=== PATIENT | female | born 1930 | race Caucasian/White ===

== ENCOUNTER 2016-03-14 11:06 | Inpatient (IN) ==
[2016-03-14] MEDS ORDERED: ASPIRIN 325 MG TABLET PO STA (11:24)
[2016-03-14] MEDS ORDERED: NITROGLYCERIN 2% OINT 1 INCH/GM PACK TOP STA (11:24)
--- NOTE | 2016-03-14 11:28 | EKG Report ---
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
[2016-03-14] MEDS ORDERED: NITROGLYCERIN 2% OINT 1 INCH/GM PACK TOP ONE (11:40)
[2016-03-14 11:52] LABS: Basophils # 0.1 10*3/uL (0.0-0.2); Basophils % 0.4 % (0.0-0.8); Eosinophils # 0.2 10*3/uL (0.0-0.87); Eosinophils % 1.2 % (0.00-10.9); Hematocrit 41.4 VOL% (35.7-47.0); Hemoglobin 13.6 GM/DL (12.0-16.0); Immature Granulocytes % 0.6 %; Immature Granulocytes Absolute 0.07 #; Lymphocytes # 1.4 10*3/uL (1.4-4.0); Lymphocytes % 10.9 % (21.3-54.2); Mean Corpuscular HGB Conc 32.9 GM/DL (32-36); Mean Corpuscular Hemoglobin 30 PG (27-34); Mean Corpuscular Volume 90.2 FL (87-102); Mean Platelet Volume 10.7 FL (9.6-12.0); Monocytes % 7.9 % (1.7-12.7); Neutrophils # 9.7 10*3/uL (1.4-7.4); Platelet Count 285 T/CUMM (130-400); Red Blood Count 4.59 MC/CUMM (3.8-5.5); Red Cell Distribution Width 13.5 % (9.3-17.3); White Blood Count 12.3 T/CUMM (4-12)
--- NOTE | 2016-03-14 11:57 | XRay Report ---
Portable chest Date:[03/14/2016] Clinical history: Chest pain Comparison: 03/11/2016 Technique: Portable AP sitting chest Findings: The heart remains normal in size uncoiling aorta. Expiratory chest with stable appearance of the lungs, mediastinum, and osseous structures. Impression: Expiratory chest with no significant change in the appearance of the chest when compared to the previous exam. PROCEDURE INTERPRETED AT [facility] DEPARTMENT OF RADIOLOGY Final Report Signed by: Dr. Karma Salas
--- NOTE | 2016-03-14 12:20 | Emergency Department Note ---
Lio De La Paz Brooke, am scribing for, and in the presence of, Adria Waldron MD 11:26. Chivo De [place] Paz Robert M, MD, personally performed the services described in this documentation, ascribed by Magui Vaca in my presence, and it is both accurate and complete . Arrival - Arrival Chief Complaint: Chest Pain Stated Complaint: chest pain ED Nursing Triage Note: midsternal chest pain started after eating breakfast no shortness of breath nitro SL and ASA 324 given enroute pain is a 4 after nitro fsg 106 pt is a poor historian Mode of Arrival: Stretcher Limitations: No Limitations Source: Patient, RN Notes Reviewed Time Seen by Provider: 03/14/16 11:22 - History of Present Illness HPI Narrative: Patient is a 85 year old female who presents to the ED with c/o chest pain that stared about three or four days ago. Patient says nothing makes the pain worse. She denies being nauseated or having SOB. Patient says she does not have any heart trouble that she knows of. Patient has PMHx of Alzheimer's disease, HTN, CVA, and dyslipidemia. Onset (ago): day(s) (3 or 4 days) Allergies/Adverse Reactions: Allergies Allergy/AdvReac Type Severity Reaction Status Date / Time clindamycin Allergy Verified 03/11/16 19:03 Erythromycin Base Allergy Verified 03/11/16 19:03 morphine Allergy Unknown/Unable Verified 06/20/14 19:27 to obtain azithromycin [From Zithromax] AdvReac Unknown/Unable Verified 06/20/14 19:27 to obtain Home Medications: Home Medications Medication Instructions Recorded Confirmed Type ALPRAZolam [Xanax] 0.25 mg PO BEDTIME 08/24/15 03/14/16 History Cholecalciferol (Vitamin D3) 5,000 unit PO DAILY 08/24/15 03/14/16 History [Vitamin D3] Flecainide Acetate 100 mg PO Q12H 08/24/15 03/14/16 History Levothyroxine Tab [Synthroid Tab] 75 mcg PO QAM 08/24/15 03/14/16 History Losartan Potassium [Cozaar] 100 mg PO DAILY 08/24/15 03/14/16 History NIFEdipine XL TAB [Procardia Xl] 60 mg PO BEDTIME 08/24/15 03/14/16 History Quetiapine Fumarate [Seroquel] 50 mg PO BEDTIME 08/24/15 03/14/16 History Acetaminophen Tab [Tylenol Tab] 500 mg PO Q6H PRN 03/11/16 03/14/16 History Oxybutynin Chloride [Oxybutynin 5 mg PO DAILY 03/11/16 03/14/16 History Chloride ER] Polyvinyl Alcohol 1.4% Oph Luz Marina 1 drop BOTH EYES Q2H PRN 03/11/16 03/14/16 History [Artificial Tears Oph Soln] Rivastigmine 4.6 mg/24Hr Patch 1 patch TRANSDERM DAILY 03/11/16 03/14/16 History [Exelon 4.6 mg/24 hr Patch] Aspirin EC Tab 81 mg PO DAILY 03/14/16 03/14/16 History Vilazodone Hydrochloride [Viibryd] 40 mg PO DAILY 03/14/16 03/14/16 History Review of System - Review of System 12 point system: reviewed and no additional remarkable complaints except as stated - Review of System Constitutional: Absent: fever Respiratory: Absent: respiratory distress Cardiovascular: Present: chest pain Gastrointestinal: Absent: nausea Skin: Absent: rash Medical,Surgical,& Family Hx - Medical History Cardio: History of: Hypertension Neurology: History of: Cerebrovascular Accident, Dementia Endocrine: History of: Dyslipidemia - Surgical History Cardiac Surgeries: Sugical HX of: Cardiac Catheterization Reproductive Surgeries: Patient denies;: Gynecologic Surgery - Social History Smoking Status: Never smoker Exam Vital Signs: Vital Signs Temperature 97.3 F L 03/14/16 11:07 Pulse Rate 76 03/14/16 11:07 Respiratory Rate 14 03/14/16 11:49 Blood Pressure 174/96 03/14/16 11:07 O2 Sat by Pulse Oximetry 97 03/14/16 11:07 - General General appearance: alert, in no apparent distress - Head Head exam: Present: atraumatic, normocephalic - Eye Eye exam: Present: normal appearance, PERRL, EOMI - ENT ENT exam: Present: other (Hard of hearing) - Neck Neck exam: Present: normal inspection - Chest Chest inspection: Present: normal inspection, symmetric chest wall rise - Respiratory Respiratory exam: Present: normal lung sounds bilaterally - Cardiovascular Cardiovascular exam: Present: regular rate, normal rhythm, normal heart sounds - Abdominal Exam Abdominal exam: Present: soft. Absent: distention, tenderness - Extremities Exam Extremities exam: Present: normal inspection - Back Exam Back exam: Present: normal inspection - Neurological Exam Neurological exam: Present: alert, oriented X3 - Psychiatric Psychiatric exam: Present: normal affect, normal mood - Skin Skin exam: Present: warm, dry, intact, normal color Course - Consultations Consultation #1: Dr. Christine Griffin was consulted and requests the patient be admitted to the hospitalists. Time: 14:54 Consultation #2: The hospitalist will evaluate and admit the patient. Time: 14:55 Results - Labs CBC & BMP: 03/14/16 11:38 03/14/16 11:38 Lab Results: I have reviewed the patients labs Labs: Lab Results WBC 12.3 T/CUMM (4-12) H 03/14/16 11:38 RBC 4.59 MC/CUMM (3.8-5.5) 03/14/16 11:38 Hgb 13.6 GM/DL (12.0-16.0) 03/14/16 11:38 Hct 41.4 VOL% (35.7-47.0) 03/14/16 11:38 MCV 90.2 FL (87-102) 03/14/16 11:38 MCH 30 PG (27-34) 03/14/16 11:38 MCHC 32.9 GM/DL (32-36) 03/14/16 11:38 RDW 13.5 % (9.3-17.3) 03/14/16 11:38 Plt Count 285 T/CUMM (130-400) D 03/14/16 11:38 MPV 10.7 FL (9.6-12.0) 03/14/16 11:38 Neut % (Auto) 79.0 % (38.7-73.9) H 03/14/16 11:38 Lymph % (Auto) 10.9 % (21.3-54.2) L 03/14/16 11:38 [place] % (Auto) 7.9 % (1.7-12.7) 03/14/16 11:38 Eos % (Auto) 1.2 % (0.00-10.9) 03/14/16 11:38 Baso % (Auto) 0.4 % (0.0-0.8) 03/14/16 11:38 Neut # (Auto) 9.7 10*3/uL (1.4-7.4) H 03/14/16 11:38 Lymph # (Auto) 1.4 10*3/uL (1.4-4.0) 03/14/16 11:38 [place] # (Auto) 1.0 10*3/uL (0.11-0.8) H 03/14/16 11:38 Eos # (Auto) 0.2 10*3/uL (0.0-0.87) 03/14/16 11:38 Baso # (Auto) 0.1 10*3/uL (0.0-0.2) 03/14/16 11:38 Immature Gran % 0.6 % 03/14/16 11:38 Nucleated RBC % 0.0 /100WBC 03/14/16 11:38 Immature Gran # 0.07 # 03/14/16 11:38 Nucleated RBCs # 0.00 10*3/uL 03/14/16 11:38 INR 1.0 03/14/16 11:38 PT Patient/Control Mix 11.0 SECS 03/14/16 11:38 Sodium 140 MMOL/L (136-145) 03/14/16 11:38 Potassium 3.9 MMOL/L (3.5-5.1) 03/14/16 11:38 Chloride 102 MMOL/L (98-107) 03/14/16 11:38 Carbon Dioxide 26 MMOL/L (21-32) 03/14/16 11:38 Anion Gap 15.9 MMOL/L (5.0-15.0) H 03/14/16 11:38 BUN 42 MG/DL (7-18) H 03/14/16 11:38 Creatinine 1.60 MG/DL (0.55-1.02) H 03/14/16 11:38 GFR Calculation 28 ML/MIN 03/14/16 11:38 BUN/Creatinine Ratio 26.00 RATIO (6.00-20.00) H 03/14/16 11:38 Glucose 86 MG/DL (74-106) 03/14/16 11:38 Calculated Osmolality 288.4 MOS/KG (273-304) 03/14/16 11:38 Calcium 8.8 MG/DL (8.5-10.1) 03/14/16 11:38 Magnesium 2.2 MG/DL (1.8-2.4) 03/14/16 11:38 Total Bilirubin 1.00 MG/DL (0.2-1.0) 03/14/16 11:38 AST 49 U/L (0-37) H 03/14/16 11:38 ALT 35 U/L (13-56) 03/14/16 11:38 Alkaline Phosphatase 113 U/L (45-117) 03/14/16 11:38 Troponin I 0.048 NG/ML (0.00-0.045) H D 03/14/16 11:38 B-Natriuretic Peptide 389 PG/ML (2-100) H 03/14/16 11:38 Total Protein 7.1 G/DL (6.4-8.3) 03/14/16 11:38 Albumin 3.0 G/DL (3.4-5.0) L 03/14/16 11:38 Globulin 4.1 G/DL (2.3-3.5) H 03/14/16 11:38 Albumin/Globulin Ratio 0.7 RATIO (1.1-2.2) L 03/14/16 11:38 Laboratory Tests 03/14/16 13:30 Total Creatine Kinase 446 H D CK-MB (CK-2) 4.9 H D Troponin I 0.045 - EKG EKG results: interpreted by SAMEERA, WNL, sinus rhythm - Diagnostic Findings Procedure: Chest x-ray: report reviewed by me Disposition Clinical Impression: Chest pain, Advanced dementia Case discussed with: patient Disposition: Still a Patient Condition: Stable Time of Disposition: 14:55
[2016-03-14 12:27] LABS: Calcium 8.8 MG/DL (8.5-10.1); Magnesium 2.2 MG/DL (1.8-2.4); Osmolality,Calculated 288.4 MOS/KG (273-304); Potassium 3.9 MMOL/L (3.5-5.1); Total Protein 7.1 G/DL (6.4-8.3)
[2016-03-14 14:17] LABS: Troponin I Only 0.045 NG/ML (0.00-0.045)
--- NOTE | 2016-03-14 16:11 | Hospitalist History & Physical ---
Assessment and Plan - Time spent with patient Time spent with patient: Greater than 30 minutes (1) Chest pain Status: Acute Assessment and plan: Improved. Will trend cardiac enzymes, telemetry, echo is not present on, aspirin given Current Visit: Yes Qualifiers: Chest pain type: unspecified Qualified Code(s): R07.9 - Chest pain, unspecified (2) Acute kidney injury Problem details: Diagnosed few days ago creatinine was 2.7. Today it's 1.6 similar to yesterday. Status: Acute Assessment and plan: I/O, if not done will do FeNa, FeUrea, renal US Current Visit: No (3) Recent urinary tract infection Problem details: Escherichia coli revealed an urine culture Status: Acute Assessment and plan: Antibiotic Current Visit: No (4) Advanced dementia Status: Chronic Current Visit: Yes (5) Debility, unspecified Status: Acute Current Visit: Yes History of Present Illness Chief complaint: chest pain History of present illness: Ms. Lopez is a 85 year old female who was just discharged yesterday reportedly presented today to the ER from the assisted for chest pain. Patient is a poor historian with advanced dementia. Periportal chest pain was improved with nitroglycerin and patient was given aspirin. EKG done and they are showed no evidence of ACS but did show prolonged OH of 236 ms. Patient stated no to having chest pain at the time of the exam and she stated no to having nausea or vomiting. ROS was very limited because of the patient's advanced dementia. Report patient was recently treated for UTI and acute kidney injury and was just discharged yesterday. Home Medications Medication Instructions Recorded Confirmed Type ALPRAZolam [Xanax] 0.25 mg PO BEDTIME 08/24/15 03/14/16 History Cholecalciferol (Vitamin D3) 5,000 unit PO DAILY 08/24/15 03/14/16 History [Vitamin D3] Flecainide Acetate 100 mg PO Q12H 08/24/15 03/14/16 History Levothyroxine Tab [Synthroid Tab] 75 mcg PO QAM 08/24/15 03/14/16 History Losartan Potassium [Cozaar] 100 mg PO DAILY 08/24/15 03/14/16 History NIFEdipine XL TAB [Procardia Xl] 60 mg PO BEDTIME 08/24/15 03/14/16 History Quetiapine Fumarate [Seroquel] 50 mg PO BEDTIME 08/24/15 03/14/16 History Acetaminophen Tab [Tylenol Tab] 500 mg PO Q6H PRN 03/11/16 03/14/16 History Oxybutynin Chloride [Oxybutynin 5 mg PO DAILY 03/11/16 03/14/16 History Chloride ER] Polyvinyl Alcohol 1.4% Oph Luz Marina 1 drop BOTH EYES Q2H PRN 03/11/16 03/14/16 History [Artificial Tears Oph Soln] Rivastigmine 4.6 mg/24Hr Patch 1 patch TRANSDERM DAILY 03/11/16 03/14/16 History [Exelon 4.6 mg/24 hr Patch] Aspirin EC Tab 81 mg PO DAILY 03/14/16 03/14/16 History Vilazodone Hydrochloride [Viibryd] 40 mg PO DAILY 03/14/16 03/14/16 History Allergies Allergy/AdvReac Type Severity Reaction Status Date / Time clindamycin Allergy Verified 03/11/16 19:03 Erythromycin Base Allergy Verified 03/11/16 19:03 morphine Allergy Unknown/Unable Verified 06/20/14 19:27 to obtain azithromycin [From Zithromax] AdvReac Unknown/Unable Verified 06/20/14 19:27 to obtain Medical,Surgical,& Family Hx - Medical History Cardio: History of: Hypertension Neurology: History of: Cerebrovascular Accident, Dementia Endocrine: History of: Dyslipidemia - Surgical History Cardiac Surgeries: Sugical HX of: Cardiac Catheterization Reproductive Surgeries: Patient denies;: Gynecologic Surgery - Social History Smoking Status: Never smoker - Constitutional Constitutional: Present: as per HPI Exam - Constitutional Vitals: Period Temp Pulse Resp BP Sys/Sultana Pulse Ox Last 24 Hr 97.3 F 76 13-14 174/96 97 Exam: General: Alert and oriented 1, NAD, medically ill appearing, does not follow most commands Neck: No JVD Heart: Distant S1-S2, RRR Lungs: CTA, no wheezing Abdomen: Soft nontender Extremity: No edema no cyanosis Skin: Warm and dry, radial Results - Labs CBC & BMP: 03/14/16 11:38 03/14/16 11:38 Quality Measures - Stroke Onset of Symptoms Date: 03/14/16 Onset of Symptoms Time: 09:00
[2016-03-14] MEDS ORDERED: POLYVINYL ALCOHOL 1.4% OPH SOLN 15 ML BOTTLE BOTH EYES PRN (16:31)
[2016-03-14] MEDS ORDERED: PROMETHAZINE 25 MG/1 ML VIAL IV PRN (16:52)
--- NOTE | 2016-03-14 17:47 | Ultrasound Report ---
Exam: US renal Bilateral Date: 03/14/2016 4:37 PM Comparison: None Indication: Acute kidney insufficiency Technique: Multiple transabdominal real-time scans were obtained of the kidneys. Ultrasound images were captured and stored. Findings: Right kidney measures 92 x 40 x 40 mm. Left kidney measures 89 x 49 x 46 mm. No mass or hydronephrosis. Impression: The kidneys are symmetric in size with minimal cortical loss. No masses or hydronephrosis. PROCEDURE INTERPRETED AT [facility] DEPARTMENT OF RADIOLOGY Final Report Signed by: Dr. Karma Salas
[2016-03-14] MEDS ORDERED: PROMETHAZINE INJ 12.5 MG in SODIUM CHLORIDE 0.9% 50 ML IV PRN (18:33)
[2016-03-14] MEDS: SODIUM CHLORIDE 0.45% 1,000 ML IV SCH (18:53)
[2016-03-14 19:37] LABS: CKMB % 1.3 %; Troponin I Only 0.026 NG/ML (0.00-0.045)
[2016-03-14] MEDS: ENOXAPARIN 30 MG/0.3 ML SYRINGE SUBCUT SCH (21:10)
[2016-03-14] MEDS: cefTRIAXone 1,000 MG in SODIUM CHLORIDE 0.9% 100 ML IV SCH (21:11)
[2016-03-14] MEDS: FLECAINIDE 100 MG TABLET PO SCH (21:12)
[2016-03-14] MEDS: ALPRAZolam 0.25 MG TABLET PO SCH (21:12)
[2016-03-14] MEDS: QUEtiapine 25 MG TABLET PO SCH (21:12)
[2016-03-14] MEDS ORDERED: ZIPRASIDONE 20 MG/1 ML VIAL IM PRN (23:25)
[2016-03-15 05:52] LABS: Calcium 8.9 MG/DL (8.5-10.1); Osmolality,Calculated 290.1 MOS/KG (273-304); Risk Ratio 4.16
[2016-03-15] MEDS: LEVOTHYROXINE 75 MCG TABLET PO SCH (06:19)
[2016-03-15] MEDS: RIVASTIGMINE 4.6 MG/24 HR PATCH TRANSDERM SCH (08:50)
[2016-03-15] MEDS: FLECAINIDE 100 MG TABLET PO SCH ×2 (08:51→20:32)
[2016-03-15] MEDS: ASPIRIN EC 81 MG TABLET PO SCH (08:51)
[2016-03-15] MEDS: OXYBUTYNIN XL 5 MG TABLET PO SCH (08:51)
[2016-03-15] MEDS ORDERED: NON-FORMULARY MEDICATION (Cholecalciferol (Vitamin D3) [Vitamin D3] 5,000 UNIT) PO SCH (09:00)
[2016-03-15] MEDS ORDERED: VILAZODONE HYDROCHLORIDE 40 MG PO SCH (09:00)
[2016-03-15 09:25] LABS: Basophils # 0.1 10*3/uL (0.0-0.2); Basophils % 0.7 % (0.0-0.8); Eosinophils # 0.4 10*3/uL (0.0-0.87); Hematocrit 39.1 VOL% (35.7-47.0); Immature Granulocytes % 0.5 %; Immature Granulocytes Absolute 0.05 #; Lymphocytes # 1.4 10*3/uL (1.4-4.0); Lymphocytes % 13.3 % (21.3-54.2); Mean Corpuscular HGB Conc 33.2 GM/DL (32-36); Mean Corpuscular Hemoglobin 30 PG (27-34); Mean Corpuscular Volume 89.3 FL (87-102); Mean Platelet Volume 10.3 FL (9.6-12.0); Monocytes # 0.9 10*3/uL (0.11-0.8); Monocytes % 8.6 % (1.7-12.7); Neutrophils # 7.7 10*3/uL (1.4-7.4); Neutrophils % 72.9 % (38.7-73.9); Red Blood Count 4.38 MC/CUMM (3.8-5.5); Red Cell Distribution Width 13.4 % (9.3-17.3); White Blood Count 10.5 T/CUMM (4-12)
[2016-03-15 09:26] LABS: Platelet Count 286 T/CUMM (130-400)
[2016-03-15] MEDS: SODIUM CHLORIDE 0.45% 1,000 ML IV SCH (10:48)
--- NOTE | 2016-03-15 15:41 | Hospitalist Progress Note ---
Assessment and Plan (1) Chest pain Status: Acute Assessment and plan: Improved. No evidence of ACS. Current Visit: Yes Qualifiers: Chest pain type: unspecified Qualified Code(s): R07.9 - Chest pain, unspecified (2) First degree AV block Problem details: [place] wave ~ 236 ms Status: Acute Assessment and plan: Patient currently asymptomatic, could be related to flecainide, will check blood level, monitor closely Current Visit: Yes (3) Acute kidney injury Problem details: Diagnosed few days ago creatinine was 2.7. Today it's 1.6 similar to yesterday. Status: Acute Assessment and plan: renal US no acute findings, monitor serum Cr, I/O, FeNa or FeUrea Current Visit: No (4) Recent urinary tract infection Problem details: Escherichia coli revealed an urine culture Status: Acute Assessment and plan: Antibiotic Current Visit: No (5) Advanced dementia Status: Chronic Assessment and plan: Fall risk precautions, c/s case management Current Visit: Yes (6) Debility, unspecified Status: Acute Assessment and plan: PTOT Current Visit: Yes Hospitalist: Subjective Interval history: Patient comfortable in bed, communication with the patient limited because of her advanced dementia. Patient stated no chest pain or nausea or vomiting but are less is virtually unobtainable because of her advanced dementia. No fever or chills reported and no overnight acute events reported. Exam - Constitutional Vitals: Period Temp Pulse Resp BP Sys/Sultana Pulse Ox Last 24 Hr 97 F-98.6 F 56-88 14-20 136-181/68-97 93-97 Exam: General: Alert and oriented 1, NAD, medically ill appearing, does not follow most commands Neck: No JVD Heart: Distant S1-S2, RRR Lungs: CTA, no wheezing Abdomen: Soft nontender Extremity: No edema no cyanosis Skin: Warm and dry Results - Labs CBC & BMP: 03/15/16 07:55 03/15/16 04:47 Quality Measures - Stroke Onset of Symptoms Date: 03/14/16 Onset of Symptoms Time: 09:00
[2016-03-15] MEDS: ALPRAZolam 0.25 MG TABLET PO SCH (20:30)
[2016-03-15] MEDS: ENOXAPARIN 30 MG/0.3 ML SYRINGE SUBCUT SCH (20:30)
[2016-03-15] MEDS: QUEtiapine 25 MG TABLET PO SCH (20:32)
[2016-03-16] MEDS: cefTRIAXone 1,000 MG in SODIUM CHLORIDE 0.9% 100 ML IV SCH ×2 (01:28→21:35)
[2016-03-16 06:08] LABS: Red Cell Distribution Width 13.2 % (9.3-17.3)
[2016-03-16 06:38] LABS: Calcium 8.6 MG/DL (8.5-10.1)
[2016-03-16 07:58] LABS: Basophils # 0.1 10*3/uL (0.0-0.2); Basophils % 0.7 % (0.0-0.8); Eosinophils # 0.4 10*3/uL (0.0-0.87); Eosinophils % 3.7 % (0.00-10.9); Hematocrit 37.1 VOL% (35.7-47.0); Hemoglobin 12.3 GM/DL (12.0-16.0); Immature Granulocytes % 0.8 %; Immature Granulocytes Absolute 0.09 #; Lymphocytes # 1.5 10*3/uL (1.4-4.0); Lymphocytes % 13.6 % (21.3-54.2); Mean Corpuscular HGB Conc 33.2 GM/DL (32-36); Mean Corpuscular Hemoglobin 30 PG (27-34); Mean Corpuscular Volume 89.2 FL (87-102); Mean Platelet Volume 10.2 FL (9.6-12.0); Monocytes # 1.1 10*3/uL (0.11-0.8); Monocytes % 9.8 % (1.7-12.7); Neutrophils # 7.7 10*3/uL (1.4-7.4); Neutrophils % 71.4 % (38.7-73.9); Platelet Count 275 T/CUMM (130-400); Red Blood Count 4.16 MC/CUMM (3.8-5.5); White Blood Count 10.8 T/CUMM (4-12)
[2016-03-16] MEDS: RIVASTIGMINE 4.6 MG/24 HR PATCH TRANSDERM SCH (09:18)
[2016-03-16] MEDS: LEVOTHYROXINE 75 MCG TABLET PO SCH (09:20)
[2016-03-16] MEDS: FLECAINIDE 100 MG TABLET PO SCH ×2 (09:20→21:37)
[2016-03-16] MEDS: ASPIRIN EC 81 MG TABLET PO SCH (09:20)
[2016-03-16] MEDS: OXYBUTYNIN XL 5 MG TABLET PO SCH (09:20)
[2016-03-16] MEDS: SODIUM CHLORIDE 0.45% 1,000 ML IV SCH ×2 (09:21→22:14)
--- NOTE | 2016-03-16 10:52 | Hospitalist Progress Note ---
Assessment and Plan (1) Chest pain Status: Acute Assessment and plan: Improved. No evidence of ACS. Current Visit: Yes Qualifiers: Chest pain type: unspecified Qualified Code(s): R07.9 - Chest pain, unspecified (2) First degree AV block Problem details: [place] wave ~ 236 ms Status: Acute Assessment and plan: Patient currently asymptomatic, could be related to flecainide & blood level pending, monitor closely Current Visit: Yes (3) Acute kidney injury Problem details: Diagnosed few days ago creatinine was 2.7. could be STERLING or STERLING on CKD Status: Acute Assessment and plan: Improving ,renal US no acute findings, . monitor serum Cr, I/O, urine Na & Cr no back yet FeNa pending. Current Visit: No (4) Recent urinary tract infection Problem details: Escherichia coli revealed an urine culture Status: Acute Assessment and plan: Antibiotic Current Visit: No (5) Advanced dementia Status: Chronic Assessment and plan: Fall risk precautions, c/s case management Current Visit: Yes (6) Debility, unspecified Status: Acute Assessment and plan: PTOT Current Visit: Yes Hospitalist: Subjective Interval history: No fever or chills reported and no overnight acute events reported. Patient comfortable in bed but communication with the patient limited because of her advanced dementia. Patient stated no chest pain or nausea or vomiting but ROS is virtually unobtainable because of her advanced dementia. Exam - Constitutional Vitals: Period Temp Pulse Resp BP Sys/Sultana Pulse Ox Last 24 Hr 96.2 F-98.4 F 56-101 17-20 132-146/74-81 92-100 Exam: General: Alert and oriented 1, NAD, medically ill appearing, does not follow most commands Neck: No JVD Heart: Distant S1-S2, RRR Lungs: CTA, no wheezing Abdomen: Soft nontender Extremity: No edema no cyanosis Skin: Warm and dry Results - Labs CBC & BMP: 03/16/16 07:39 03/16/16 05:46 Quality Measures - Stroke Onset of Symptoms Date: 03/14/16 Onset of Symptoms Time: 09:00
[2016-03-16] MEDS: QUEtiapine 25 MG TABLET PO SCH (21:37)
[2016-03-16] MEDS: ENOXAPARIN 40 MG/0.4 ML SYRINGE SUBCUT SCH (21:37)
[2016-03-16] MEDS: ALPRAZolam 0.25 MG TABLET PO SCH (21:38)
[2016-03-17 04:28] LABS: Basophils # 0.1 10*3/uL (0.0-0.2); Basophils % 0.5 % (0.0-0.8); Eosinophils # 0.2 10*3/uL (0.0-0.87); Eosinophils % 1.8 % (0.00-10.9); Hemoglobin 11.5 GM/DL (12.0-16.0); Immature Granulocytes % 0.7 %; Immature Granulocytes Absolute 0.08 #; Lymphocytes # 1.7 10*3/uL (1.4-4.0); Lymphocytes % 15.8 % (21.3-54.2); Mean Corpuscular HGB Conc 32.9 GM/DL (32-36); Mean Corpuscular Hemoglobin 29 PG (27-34); Mean Corpuscular Volume 89.5 FL (87-102); Mean Platelet Volume 10.3 FL (9.6-12.0); Monocytes % 9.3 % (1.7-12.7); Neutrophils # 7.8 10*3/uL (1.4-7.4); Neutrophils % 71.9 % (38.7-73.9); Platelet Count 305 T/CUMM (130-400); Red Blood Count 3.91 MC/CUMM (3.8-5.5); Red Cell Distribution Width 13.4 % (9.3-17.3); White Blood Count 10.9 T/CUMM (4-12)
[2016-03-17 04:54] LABS: Calcium 8.7 MG/DL (8.5-10.1); Osmolality,Calculated 282.3 MOS/KG (273-304); Potassium 4.1 MMOL/L (3.5-5.1)
[2016-03-17] MEDS: LEVOTHYROXINE 75 MCG TABLET PO SCH (06:04)
--- NOTE | 2016-03-17 08:29 | ECHO Report ---
Carmen Lopez Exam Date: 03/15/2016 11:37 Referring Physician: Technologist: Jose Guadalupe DAMON Age: 85 Ht (in): Wt (lb): Gender: F Exam Location: [facility] Echo Indications: dehydration, UTI, Chest pain, leukocytosis, acute kidney injury BP: / HR: Rhythm: Sinus Technical Quality: Fair IMPRESSIONS EF 60 %. Grade I/IV diastolic dysfunction (abnormal relaxation filling pattern), normal to mildly elevated filling pressures. Normal right ventricular size. Moderately increased right atrial size. Moderately increased left atrial size. Thickened mitral valve. Trace mitral valve regurgitation. Aortic valve sclerosis. No aortic valve regurgitation. Wboj-yw-ydrferfo tricuspid valve regurgitation. VBN38-76 mmHG. Pulmonic valve not well visualized. No pericardial effusion. Normal size aortic root and proximal ascending aorta. MEASUREMENTS (Male / Female) Normal Values 2D ECHO LV Diastolic Diameter PLAX 3.5 cm 4.2 - 5.9 / 3.9 - 5.3 cm LV Systolic Diameter PLAX 2.6 cm LV Fractional Shortening PLAX 25.1 % IVS Diastolic Thickness 1.5 cm 0.6 - 1.0 / 0.6 - 0.9 cm LVPW Diastolic Thickness 1.1 cm 0.6 - 1.0 / 0.6 - 0.9 cm RV Internal Dim ED PLAX 2.3 cm Aortic Root Diameter 2.2 cm LA Systolic Diameter LX 3.5 cm 3.0 - 4.0 / 2.7 - 3.8 cm DOPPLER TR Peak Velocity 166.0 cm/s TR Peak Gradient 11.0 mmHg FINDINGS Left Ventricle EF 60 %. Grade I/IV diastolic dysfunction (abnormal relaxation filling pattern), normal to mildly elevated filling pressures. Right Ventricle Normal right ventricular size. Right Atrium Moderately increased right atrial size. Left Atrium Moderately increased left atrial size. Mitral Valve Thickened mitral valve. Trace mitral valve regurgitation. Aortic Valve Aortic valve sclerosis. No aortic valve regurgitation. Tricuspid Valve Morphologically normal tricuspid valve. Bmch-kd-vuknlohz tricuspid valve regurgitation. [id number] mmHG. Pulmonic Valve Pulmonic valve not well visualized. Pericardium No pericardial effusion. Aorta Normal size aortic root and proximal ascending aorta. Constantino June (Electronically Signed) Final Date: 15 March 2016 15:52
[2016-03-17] MEDS: OXYBUTYNIN XL 5 MG TABLET PO SCH (09:38)
[2016-03-17] MEDS: ASPIRIN EC 81 MG TABLET PO SCH (09:39)
[2016-03-17] MEDS: RIVASTIGMINE 4.6 MG/24 HR PATCH TRANSDERM SCH (09:39)
[2016-03-17] MEDS: FLECAINIDE 100 MG TABLET PO SCH ×2 (09:39→21:47)
--- NOTE | 2016-03-17 09:54 | Hospitalist Progress Note ---
Assessment and Plan (1) Advanced dementia Status: Chronic Assessment and plan: Frequent falls with low grade myocytolysis. Equivocal history of chest pain. Significant pre-renal changes on no diuretics appears developing food inattention associated with Alzheimer's disease. Current Visit: Yes Hospitalist: Subjective Interval history: 85 yo female with advanced dementia with falls. Admitted one day post discharge with possible chest pain. cTnI negative with elevated total CK with normal ratio of MB (markedly elevated after fall on last admission). She had E coli UTI treated on last hospital stay. She has resolved her elevation of serum creatinine with rehydration. She expresses only a desire to sleep this morning. Exam - Constitutional Vitals: Period Temp Pulse Resp BP Sys/Sultana Pulse Ox Last 24 Hr 97.4 F-99.4 F 70-94 16-22 119-194/57-89 90-96 General appearance: normal weight - Respiratory Respiratory exam: Present: clear to auscultation bilaterally. Absent: rales, rhonchi, wheezes - Cardiovascular Cardiovascular exam: Present: regular rate and rhythm - GI/Abdominal GI/Abdominal exam: Present: normal bowel sounds. Absent: tenderness - Extremities Exam Extremities exam: Absent: edema - Neurological Exam Neurological exam: Present: alert. Absent: oriented X3 Results - Labs CBC & BMP: 03/17/16 03:43 03/17/16 03:43 Quality Measures - Stroke Onset of Symptoms Date: 03/14/16 Onset of Symptoms Time: 09:00
[2016-03-17] MEDS: SODIUM CHLORIDE 0.45% 1,000 ML IV SCH (12:37)
[2016-03-17] MEDS: cefTRIAXone 1,000 MG in SODIUM CHLORIDE 0.9% 100 ML IV SCH (21:46)
[2016-03-17] MEDS: QUEtiapine 25 MG TABLET PO SCH (21:47)
[2016-03-17] MEDS: ALPRAZolam 0.25 MG TABLET PO SCH (21:47)
[2016-03-17] MEDS: ENOXAPARIN 40 MG/0.4 ML SYRINGE SUBCUT SCH (21:48)
[2016-03-18] MEDS: SODIUM CHLORIDE 0.45% 1,000 ML IV SCH (03:15)
[2016-03-18] MEDS: LEVOTHYROXINE 75 MCG TABLET PO SCH (06:00)
--- NOTE | 2016-03-18 08:06 | Hospitalist Progress Note ---
Assessment and Plan (1) Advanced dementia Status: Chronic Assessment and plan: Frequent falls with low grade myocytolysis. Equivocal history of chest pain. Significant pre-renal changes on no diuretics appears developing food inattention associated with Alzheimer's disease. Current Visit: Yes Hospitalist: Subjective Interval history: 85 yo female with advanced dementia, readmitted from custodial after admission for frequent falls with low grade myocytolysis with possible chest pain. No cardiac biomarker changes and unclear whether complaint was related to earlier falls. Found to have pre-renal azotemia attributable to inadequate or intake and resolving with IV fluids. She continues largely indifferent to food. This AM more alert. Exam - Constitutional Vitals: Period Temp Pulse Resp BP Sys/Sultana Pulse Ox Last 24 Hr 98.2 F-99.6 F 87-98 16-22 127-158/64-70 93-97 General appearance: normal weight - Respiratory Respiratory exam: Present: clear to auscultation bilaterally. Absent: rales, rhonchi, wheezes - Cardiovascular Cardiovascular exam: Present: regular rate and rhythm - GI/Abdominal GI/Abdominal exam: Present: normal bowel sounds. Absent: tenderness - Extremities Exam Extremities exam: Absent: edema - Neurological Exam Neurological exam: Present: alert. Absent: oriented X3 Results - Labs CBC & BMP: 03/17/16 03:43 03/17/16 03:43 Quality Measures - Stroke Onset of Symptoms Date: 03/14/16 Onset of Symptoms Time: 09:00
[2016-03-18] MEDS: ASPIRIN EC 81 MG TABLET PO SCH (09:43)
[2016-03-18] MEDS: OXYBUTYNIN XL 5 MG TABLET PO SCH (09:44)
[2016-03-18] MEDS: RIVASTIGMINE 4.6 MG/24 HR PATCH TRANSDERM SCH (09:47)
[2016-03-18] MEDS: FLECAINIDE 100 MG TABLET PO SCH ×2 (09:48→21:44)
[2016-03-18] MEDS: ENOXAPARIN 40 MG/0.4 ML SYRINGE SUBCUT SCH (21:44)
[2016-03-18] MEDS: QUEtiapine 25 MG TABLET PO SCH (21:44)
[2016-03-18] MEDS: ALPRAZolam 0.25 MG TABLET PO SCH (21:44)
[2016-03-19] MEDS: LEVOTHYROXINE 75 MCG TABLET PO SCH (06:31)
--- NOTE | 2016-03-19 07:29 | Discharge Summary ---
Hospital Course - Hospital Course Hospital Course: 85 yo female with advanced dementia who had been recently discharged from hospital with frequent falls and post traumatic myocytolysis was readmitted for vague complaints of chest pain. Cardiac biomarkers were negative and was suspected that represented residual from her prior fall. Her serum creatinine level was elevated and corrected fully with IV fluids. She is on no diuretics and appears that pre-renal changes were induced due to poor oral intake. She is to return to nursing care facility with trial of oral intake though if this does represent a terminal feature of her dementia may need to discuss potential nutritional support (? PEG). Diagnosis - Discharge Diagnosis (1) Advanced dementia Status: Chronic Discharge Plan - Discharge Data Disposition: Disch/Xfer to [facility] Condition at Discharge: Stable Discharge Diet: advance to your usual diet - Discharge Medications Continue Quetiapine Fumarate [Seroquel] 50 mg PO BEDTIME Cholecalciferol (Vitamin D3) [Vitamin D3] 5,000 unit PO DAILY ALPRAZolam [Xanax] 0.25 mg PO BEDTIME Flecainide Acetate 100 mg PO Q12H Levothyroxine Tab [Synthroid Tab] 75 mcg PO QAM Polyvinyl Alcohol 1.4% Oph Luz Marina [Artificial Tears Oph Soln] 1 drop BOTH EYES Q2H PRN PRN Reason: Dry Eyes Rivastigmine 4.6 mg/24Hr Patch [Exelon 4.6 mg/24 hr Patch] 1 patch TRANSDERM DAILY Acetaminophen Tab [Tylenol Tab] 500 mg PO Q6H PRN PRN Reason: Pain Oxybutynin Chloride [Oxybutynin Chloride ER] 5 mg PO DAILY Aspirin EC Tab 81 mg PO DAILY Vilazodone Hydrochloride [Viibryd] 40 mg PO DAILY Discontinued Losartan Potassium [Cozaar] 100 mg PO DAILY NIFEdipine XL TAB [Procardia Xl] 60 mg PO BEDTIME - Follow Up or Referral - Forms/Instructions Exam - Constitutional Vitals: Period Temp Pulse Resp BP Sys/Sultana Pulse Ox Last 24 Hr 97.6 F-99.4 F 62-106 16-18 90-166/46-89 90-94 Discharge Results Labs on day of discharge: Labs from last 24 hours 03/15/16 16:31 Flecainide 1.0 DS: Provider Date of admission: 03/14/16 16:19 Primary care physician: . No PCP Attending physician on admission: Marybel Sparks Consults: 03/14/16 18:34 Consult to Pharmacy [CONS] Routine Reason for Pharmacy Consult: Adjust Meds Renal Funct Discharging clinician: Aayan Mills MD Expected date of discharge: 03/19/16
[2016-03-19] MEDS: ASPIRIN EC 81 MG TABLET PO SCH (09:23)
[2016-03-19] MEDS: OXYBUTYNIN XL 5 MG TABLET PO SCH (09:23)
[2016-03-19] MEDS: FLECAINIDE 100 MG TABLET PO SCH (09:23)
[2016-03-19] MEDS: RIVASTIGMINE 4.6 MG/24 HR PATCH TRANSDERM SCH (09:23)
[2016-03-19 16:27] VITALS: BP 114/65
== END 2016-03-19 16:51 | disposition home or self-care (01) | DRG 684 ==
LOC: EDUNIT# → EDBD → N.ED 11:06 → N.EDINP 16:19 → SUATTDRO 16:19 → N.TELEN 17:30
PROVIDERS: ADMIT Student in an Organized Health Care Education/Training Program; ATTEND Internal Medicine Cardiovascular Disease